=== PATIENT | female | born 2000 | race Caucasian/White ===

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

== ENCOUNTER 2021-08-19 08:09 | Emergency (ER) | payer BC ==
[~2021-08-19] VITALS: Ht 157.5 cm; Wt 49.5 kg
[2021-08-19] MEDS ORDERED: INDERAL 20MG20 MG PO (09:38)
[2021-08-19] MEDS ORDERED: FLORINEF ACETA0.1 MG PO (09:38)
[2021-08-19] MEDS ORDERED: AMBIEN 5MG TABLE5 MG PO (09:39)
[2021-08-19] MEDS ORDERED: PROZAC 20MG20 MG PO (09:39)
[2021-08-19] MEDS ORDERED: ZOFRAN ODT8 MG PO (09:39)
[2021-08-19] MEDS ORDERED: MILI 0.25-0.031 EACH PO (09:39)
[2021-08-19] MEDS ORDERED: RITALIN 5MG5 MG/TAB PO (09:40)
[2021-08-19 09:49] LABS: MONOSCREEN NEGATIVE
[2021-08-19 10:03] LABS: STREP SCREEN NEGATIVE
[2021-08-19 10:30] VITALS: TEMP 99.6
[2021-08-19 11:12] LABS: COLLECTION METHOD CLEAN CATCH
[2021-08-19] MEDS ORDERED: ZOFRAN ODT4 MG PO (11:17)
[2021-08-19 11:22] LABS: BASO % 0.3 % (0.0-2.0); EOS % 0.3 % (0.0-4.0); GRAN # 11.7 K/mm3 (1.4-6.5); GRAN % 85.9 % (42.2-75.2); HEMOGLOBIN 11.1 g/dl (12.5-16.0); LYMPH # 0.8 K/mm3 (1.2-3.4); LYMPH % 5.8 % (20.0-51.0); MEAN CELL VOLUME 91 fl (80.0-100.0); MEAN CORPUSCULAR HEMOGLOBIN 30 pg (27-31); MEAN CORPUSCULAR HGB CONC 33 g/dl (33.0-37.0); MEAN PLATELET VOLUME 10.8 fl (7.4-10.4); MONO % 7.3 % (1.7-9.3); PLATELET COUNT 197 K/mm3 (130-400); RED BLOOD COUNT 3.71 M/mm3 (4.10-5.30); REDCELL DISTRIBUTION WIDTH-CV 11.9 % (11.5-14.5)
[2021-08-19 11:32] LABS: MUCOUS Present (NOT PRESENT); PH 6 (5-8); SQUAMOUS EPITHELIAL 0-2 /hpf (0-10); URINE APPEARANCE Clear (CLEAR/HAZY); URINE BACTERIA Rare /hpf (NONE SEEN); URINE BILIRUBIN Negative (NEGATIVE); URINE BLOOD Negative (NEGATIVE); URINE COLOR Yellow (YELLOW); URINE GLUCOSE Negative (NEGATIVE); URINE KETONE 1+ (NEGATIVE); URINE LEUKOCYTE ESTERASE Negative (NEGATIVE); URINE NITRATE Negative (NEGATIVE); URINE PROTEIN(semi-quant) Negative (NEGATIVE)
[2021-08-19 11:33] LABS: ALBUMIN 3.2 gm/dL (3.5-5.0); BILIRUBIN,TOTAL 0.3 mg/dL (0.2-1.2); CALCIUM 8.4 mg/dL (8.4-10.2); CREATININE, serum 0.65 mg/dL (0.57-1.11); POTASSIUM 3.7 mmol/L (3.5-4.5); TOTAL PROTEIN 6.1 gm/dL (6.2-8.1)
[2021-08-19 11:36] LABS: HEMATOCRIT 33.6 % (37.0-47.0)
[2021-08-19 12:42] VITALS: BP 115/72; PULSE 109
== END 2021-08-19 12:44 | disposition home or self-care (01) ==
LOC: COL.ER 08:09
PROVIDERS: Emergency Medicine
DX: R50.9 Fever, unspecified (principal); R00.0 Tachycardia, unspecified; Z20.822 Contact with and (suspected) exposure to COVID-19
CPT/HCPCS: J0780; J1200; J1885; J2405; J7120

== ENCOUNTER → 2021-08-24 | Emergency (ER) | payer BC ==
[~2021-08-24] MED LIST changes: +AMBIEN 5MG TABLE5 MG PO; +FLORINEF ACETA0.1 MG PO; +INDERAL 20MG20 MG PO; +MILI 0.25-0.031 EACH PO; +PROZAC 20MG20 MG PO; +RITALIN 5MG5 MG/TAB PO; +ZOFRAN ODT4 MG PO; +ZOFRAN ODT8 MG PO
== END ==
LOC: COL.ER 04:58
DX: Z72.89 Other problems related to lifestyle (principal)

== ENCOUNTER 2021-09-29 00:25 | Emergency (ER) | payer BC ==
[~2021-09-29] VITALS: Ht 152.4 cm; Wt 56.8 kg
[2021-09-29 00:30] VITALS: TEMP 98.1
[2021-09-29 01:29] VITALS: BP 140/101; PULSE 95
== END 2021-09-29 01:31 | disposition home or self-care (01) ==
LOC: COL.ER 00:25
DX: J95.830 Postprocedural hemorrhage of a respiratory system organ or structure following a respiratory system procedure (principal)

== ENCOUNTER 2021-10-02 03:00 | Emergency (ER) | payer BC ==
[~2021-10-02] VITALS: Ht 157.5 cm; Wt 52.3 kg
[2021-10-02 03:03] VITALS: TEMP 98.4
[2021-10-02 03:20] LABS: BASO % 0.6 % (0.0-2.0); EOS # 0.1 K/mm3 (0.0-0.7); EOS % 1.7 % (0.0-4.0); GRAN # 4.3 K/mm3 (1.4-6.5); GRAN % 61.2 % (42.2-75.2); HEMOGLOBIN 11.7 g/dl (12.5-16.0); LYMPH # 1.9 K/mm3 (1.2-3.4); LYMPH % 27.4 % (20.0-51.0); MEAN CELL VOLUME 89 fl (80.0-100.0); MEAN CORPUSCULAR HEMOGLOBIN 30 pg (27-31); MEAN CORPUSCULAR HGB CONC 33 g/dl (33.0-37.0); MEAN PLATELET VOLUME 9.5 fl (7.4-10.4); MONO # 0.6 K/mm3 (0.1-0.6); MONO % 8.8 % (1.7-9.3); PLATELET COUNT 298 K/mm3 (130-400); RED BLOOD COUNT 3.95 M/mm3 (4.10-5.30); REDCELL DISTRIBUTION WIDTH-CV 11.5 % (11.5-14.5)
[2021-10-02 03:22] LABS: HEMATOCRIT 35.1 % (37.0-47.0)
[2021-10-02 03:38] LABS: ALBUMIN 3.7 gm/dL (3.5-5.0); BILIRUBIN,TOTAL 0.3 mg/dL (0.2-1.2); C-REACTIVE PROTEIN 2.17 mg/dL (0.00-0.50); CREATININE, serum 0.74 mg/dL (0.57-1.11); POTASSIUM 3.5 mmol/L (3.5-4.5); TOTAL PROTEIN 7.4 gm/dL (6.2-8.1)
[2021-10-02] MEDS ORDERED: PHENERGAN 25 TA25 MG PO (04:57)
[2021-10-02 05:07] VITALS: BP 122/72; PULSE 84
== END 2021-10-02 05:08 | disposition home or self-care (01) ==
LOC: COL.ER 03:00
PROVIDERS: Emergency Medicine
DX: R11.2 Nausea with vomiting, unspecified (principal); Z90.89 Acquired absence of other organs
CPT/HCPCS: J1100; J2550; J7030

== ENCOUNTER → 2021-10-28 | Outpatient (CLI) | payer BC ==
[~2021-10-28] MED LIST changes: +PHENERGAN 25 TA25 MG PO
== END ==
LOC: COL.RAD 09-25 07:30
DX: G93.3 Postviral and related fatigue syndromes (principal); R20.2 Paresthesia of skin
CPT/HCPCS: A9575

== ENCOUNTER → 2022-05-12 | Outpatient (CLI) | payer BC | LOC: COL.RAD 13:46 | DX: E04.1 Nontoxic single thyroid nodule (principal) ==

== ENCOUNTER 2022-05-16 06:23 | Day surgery (SDC) | payer BC ==
[~2022-05-16] VITALS: Ht 157.5 cm; Wt 52.1 kg
[2022-05-16] MEDS ORDERED: ORILISSA150 MG PO (07:04)
[2022-05-16] MEDS ORDERED: TOPAMAX 25MG25 M1 PO (07:05)
[2022-05-16] MEDS ORDERED: BENADRYL50 MG PO (07:05)
[2022-05-16] MEDS ORDERED: MELATONIN5 M1 SL (07:06)
[2022-05-16] MEDS ORDERED: MAGNESIUM OXID500 MG PO (07:06)
[2022-05-16 07:50] VITALS: BP 131/58; PULSE 74; TEMP 97.1
[2022-05-16 08:05] VITALS: BP 109/92; PULSE 84
[2022-05-16 08:15] VITALS: BP 103/71; PULSE 76
--- NOTE | 2022-05-16 08:20 | NUR ---
0750 RETURNS TO ROOM 3 PER CART. AWAKE, ALERT. AMBULATES TO RECLINER WITH STANDBY ASSIST. RESP UNLABORED. DENIES NAUSEA, ABD PAIN OR DYSPHAGIA. CALL LIGHT AT SIDE. FRIEND IN ROOM 0805 TOLERATES PO JUICE AND MUFFIN WITHOUT NAUSEA. SWALLOWS WITHOUT DIFFICULTY. 0806 DISCHARGE INSTRUCTIONS REVIEWED. PATIENT VERBALIZES UNDERSTANDING. COPY PROVIDED IN DISCHARGE FOLDER. [address] JARVIS HERE TO VISIT WITH PATIENT.
[2022-05-16 12:52] VITALS: BP 116/69; PULSE 80; TEMP 97.7
== END 2022-05-16 08:20 | disposition home or self-care (01) ==
LOC: SDCO 06:23
DX: T18.2XXA Foreign body in stomach, initial encounter (principal); K21.9 Gastro-esophageal reflux disease without esophagitis; F41.9 Anxiety disorder, unspecified; X58.XXXA Exposure to other specified factors, initial encounter
CPT/HCPCS: J2704

== ENCOUNTER 2023-06-20 19:36 | Emergency (ER) | payer BC ==
[~2023-06-20] VITALS: Ht 157.5 cm; Wt 50.9 kg
[~2023-06-20 19:36] MED LIST changes: +BENADRYL50 MG PO; +MAGNESIUM OXID500 MG PO; +MELATONIN5 M1 SL; +ORILISSA150 MG PO; +TOPAMAX 25MG25 M1 PO
[2023-06-20 20:01] VITALS: TEMP 98
[2023-06-20 20:44] LABS: COLLECTION METHOD CLEAN CATCH
[2023-06-20 20:47] LABS: BASO # 0.1 K/mm3 (0.0-0.2); BASO % 0.7 % (0.0-2.0); EOS # 0.2 K/mm3 (0.0-0.7); EOS % 2.1 % (0.0-4.0); GRAN # 4.9 K/mm3 (1.4-6.5); HEMATOCRIT 39.1 % (37.0-47.0); HEMOGLOBIN 13.1 g/dl (12.5-16.0); LYMPH # 2.9 K/mm3 (1.2-3.4); LYMPH % 32.3 % (20.0-51.0); MEAN CELL VOLUME 88 fl (80.0-100.0); MEAN CORPUSCULAR HEMOGLOBIN 29 pg (27-31); MEAN CORPUSCULAR HGB CONC 34 g/dl (33.0-37.0); MEAN PLATELET VOLUME 9.5 fl (7.4-10.4); MONO # 0.9 K/mm3 (0.1-0.6); MONO % 9.5 % (1.7-9.3); PLATELET COUNT 327 K/mm3 (130-400); RED BLOOD COUNT 4.46 M/mm3 (4.10-5.30); REDCELL DISTRIBUTION WIDTH-CV 13.1 % (11.5-14.5)
[2023-06-20 20:53] LABS: PH 8.5 (5.0-8.5); URINE APPEARANCE TURBID (CLEAR/HAZY); URINE BLOOD NEGATIVE (NEGATIVE); URINE COLOR YELLOW (YELLOW); URINE GLUCOSE NEGATIVE (NEGATIVE); URINE KETONE NEGATIVE (NEGATIVE); URINE NITRATE NEGATIVE (NEGATIVE); URINE PROTEIN(semi-quant) NEGATIVE (NEGATIVE); URINE UROBILINOGEN 0.2 E.U/dL (0.2-1.0)
[2023-06-20 21:03] LABS: ALBUMIN 3.9 g/dL (3.5-5.0); BILIRUBIN,TOTAL 0.2 mg/dL (0.2-1.2); CALCIUM 9.3 mg/dL (8.4-10.2); CREATININE, serum 0.77 mg/dL (0.57-1.11); MAGNESIUM 2.1 mg/dL (1.6-2.6); POTASSIUM 3.6 mEq/L (3.5-4.5); TOTAL PROTEIN 7.8 g/dl (6.2-8.1)
[2023-06-20] MEDS ORDERED: CEPHALEXIN500 M1 PO (21:33)
[2023-06-20] MEDS ORDERED: LORazepam 2 MG/ML 1 ML VIAL IV ONE (21:45)
[2023-06-20 22:20] VITALS: BP 108/56; PULSE 76
== END 2023-06-20 22:20 | disposition home or self-care (01) ==
LOC: COL.ER 19:36
PROVIDERS: Emergency Medicine
DX: G93.32 Myalgic encephalomyelitis/chronic fatigue syndrome (principal); N39.0 Urinary tract infection, site not specified
CPT/HCPCS: J1720; J2060

== ENCOUNTER 2023-07-08 22:42 | Emergency (ER) | payer BC ==
[~2023-07-08] VITALS: Ht 157.5 cm; Wt 50.9 kg
[~2023-07-08 22:42] MED LIST changes: +CEPHALEXIN500 M1 PO
[2023-07-08 22:52] VITALS: TEMP 99.2
[2023-07-08] MEDS ORDERED: NS 1,000 ML IV ONE (23:15)
[2023-07-08 23:19] LABS: COLLECTION METHOD CLEAN CATCH
[2023-07-08 23:27] LABS: PH 7.5 (5.0-8.5); URINE APPEARANCE CLEAR (CLEAR/HAZY); URINE BLOOD 2+ (NEGATIVE); URINE COLOR YELLOW (YELLOW); URINE GLUCOSE NEGATIVE (NEGATIVE); URINE KETONE NEGATIVE (NEGATIVE); URINE NITRATE NEGATIVE (NEGATIVE); URINE PROTEIN(semi-quant) NEGATIVE (NEGATIVE); URINE UROBILINOGEN 0.2 E.U/dL (0.2-1.0)
[2023-07-08] MEDS ORDERED: LORazepam 2 MG/ML 1 ML VIAL IV ONE (23:30)
[2023-07-08 23:43] LABS: BASO # 0.1 K/mm3 (0.0-0.2); EOS # 0.1 K/mm3 (0.0-0.7); EOS % 1.8 % (0.0-4.0); GRAN # 3.5 K/mm3 (1.4-6.5); GRAN % 48.1 % (42.2-75.2); HEMOGLOBIN 11.9 g/dl (12.5-16.0); LYMPH # 2.9 K/mm3 (1.2-3.4); LYMPH % 39.4 % (20.0-51.0); MEAN CELL VOLUME 89 fl (80.0-100.0); MEAN CORPUSCULAR HEMOGLOBIN 30 pg (27-31); MEAN CORPUSCULAR HGB CONC 34 g/dl (33.0-37.0); MONO # 0.7 K/mm3 (0.1-0.6); MONO % 9.3 % (1.7-9.3); PLATELET COUNT 248 K/mm3 (130-400); RED BLOOD COUNT 3.98 M/mm3 (4.10-5.30); REDCELL DISTRIBUTION WIDTH-CV 12.5 % (11.5-14.5)
[2023-07-08 23:45] LABS: HEMATOCRIT 35.4 % (37.0-47.0)
[2023-07-09] LABS: ALBUMIN 3.4 g/dL (3.5-5.0); CALCIUM 9.1 mg/dL (8.4-10.2); CREATININE, serum 0.85 mg/dL (0.57-1.11); POTASSIUM 3.6 mEq/L (3.5-4.5); TOTAL PROTEIN 6.9 g/dl (6.2-8.1)
[2023-07-09 00:12] LABS: BILIRUBIN,TOTAL 0.1 mg/dL (0.2-1.2)
[2023-07-09] MEDS ORDERED: ATIVAN 1MG T1 MG/TAB PO (01:40)
[2023-07-09 01:55] VITALS: BP 108/71; PULSE 80
[2023-07-10] MEDS ORDERED: RITALIN 20M20 MG/TAB PO (16:18)
[2023-07-10] MEDS ORDERED: FERRO-TIME325 MG PO (16:21)
== END 2023-07-09 01:58 | disposition home or self-care (01) ==
LOC: COL.ER 22:42
PROVIDERS: Nurse Practitioner
DX: R56.9 Unspecified convulsions (principal); Z79.899 Other long term (current) drug therapy
CPT/HCPCS: J2060; J7030

== ENCOUNTER 2023-08-29 11:30 | Emergency (ER) | payer BC ==
[~2023-08-29] VITALS: Ht 157.5 cm; Wt 53.6 kg
[~2023-08-29 11:30] MED LIST changes: +ATIVAN 1MG T1 MG/TAB PO; +FERRO-TIME325 MG PO; +RITALIN 20M20 MG/TAB PO
[2023-08-29 11:32] VITALS: TEMP 98.4
[2023-08-29] MEDS ORDERED: NS 1,000 ML IV ONE (11:45)
[2023-08-29] MEDS ORDERED: levETIRAcetam 500 MG in Syringe 1 EACH IV ONE (11:45)
[2023-08-29] MEDS ORDERED: FLORINEF ACETA0.1 MG PO (12:00)
[2023-08-29] MEDS ORDERED: KEPPRA250 MG PO (12:00)
[2023-08-29] MEDS ORDERED: ORILISSA150 MG (12:00)
[2023-08-29] MEDS ORDERED: PROZAC40 MG PO (12:01)
[2023-08-29] MEDS ORDERED: ABILIFY2 MG PO (12:01)
[2023-08-29 12:02] LABS: BASO # 0.1 K/mm3 (0.0-0.2); BASO % 0.5 % (0.0-2.0); EOS # 0.1 K/mm3 (0.0-0.7); EOS % 0.7 % (0.0-4.0); GRAN # 7.9 K/mm3 (1.4-6.5); GRAN % 76.9 % (42.2-75.2); HEMATOCRIT 38.1 % (37.0-47.0); HEMOGLOBIN 12.1 g/dl (12.5-16.0); LYMPH # 1.6 K/mm3 (1.2-3.4); LYMPH % 15.7 % (20.0-51.0); MEAN CELL VOLUME 89 fl (80.0-100.0); MEAN CORPUSCULAR HEMOGLOBIN 28 pg (27-31); MEAN CORPUSCULAR HGB CONC 32 g/dl (33.0-37.0); MEAN PLATELET VOLUME 9.7 fl (7.4-10.4); MONO # 0.6 K/mm3 (0.1-0.6); MONO % 5.9 % (1.7-9.3); PLATELET COUNT 257 K/mm3 (130-400); RED BLOOD COUNT 4.26 M/mm3 (4.10-5.30); REDCELL DISTRIBUTION WIDTH-CV 12.1 % (11.5-14.5)
[2023-08-29 12:21] LABS: ALBUMIN 3.8 g/dL (3.5-5.0); BILIRUBIN,TOTAL 0.4 mg/dL (0.2-1.2); CALCIUM 9.9 mg/dL (8.4-10.2); CREATININE, serum 0.82 mg/dL (0.57-1.11); MAGNESIUM 1.8 mg/dL (1.6-2.6); POTASSIUM 3.4 mEq/L (3.5-4.5); TOTAL PROTEIN 7.1 g/dl (6.2-8.1)
[2023-08-29 12:41] LABS: PROLACTIN 19.8 ng/mL (5.18-26.53)
[2023-08-29 14:24] VITALS: BP 120/75; PULSE 73
== END 2023-08-29 14:00 | disposition home or self-care (01) ==
LOC: COL.ER 11:30
PROVIDERS: Emergency Medicine
DX: G40.909 Epilepsy, unspecified, not intractable, without status epilepticus (principal); Z79.899 Other long term (current) drug therapy
CPT/HCPCS: J1953; J7030

== ENCOUNTER 2023-10-11 16:50 | Emergency (ER) | payer BC ==
[~2023-10-11] VITALS: Ht 157.5 cm; Wt 54.5 kg
[~2023-10-11 16:50] MED LIST changes: +ABILIFY2 MG PO; +KEPPRA 500MG500 MG PO; +KEPPRA250 MG PO; +ORILISSA150 MG; +PROZAC40 MG PO; +RITALIN LA20 MG PO; +RITALIN10 MG PO; +ZOFRAN8 MG PO; +[UNRECOGNIZED DRUG - OTHER] PO
[2023-10-11 16:53] VITALS: TEMP 98.8
[2023-10-11 17:29] LABS: COLLECTION METHOD CLEAN CATCH
[2023-10-11 17:43] LABS: TRICYCLIC ANTIDEPRESS URINE NEGATIVE (NEGATIVE)
[2023-10-11 17:43] LABS: BASO # 0.1 K/mm3 (0.0-0.2); BASO % 0.6 % (0.0-2.0); EOS # 0.1 K/mm3 (0.0-0.7); EOS % 1.7 % (0.0-4.0); GRAN # 5.2 K/mm3 (1.4-6.5); GRAN % 66.1 % (42.2-75.2); HEMOGLOBIN 11.8 g/dl (12.5-16.0); LYMPH # 1.8 K/mm3 (1.2-3.4); LYMPH % 22.4 % (20.0-51.0); MEAN CELL VOLUME 89 fl (80.0-100.0); MEAN CORPUSCULAR HEMOGLOBIN 29 pg (27-31); MEAN CORPUSCULAR HGB CONC 33 g/dl (33.0-37.0); MEAN PLATELET VOLUME 9.8 fl (7.4-10.4); MONO # 0.7 K/mm3 (0.1-0.6); MONO % 8.8 % (1.7-9.3); PLATELET COUNT 261 K/mm3 (130-400); RED BLOOD COUNT 4.06 M/mm3 (4.10-5.30); REDCELL DISTRIBUTION WIDTH-CV 11.6 % (11.5-14.5)
[2023-10-11 17:55] LABS: HEMATOCRIT 36.1 % (37.0-47.0)
[2023-10-11 17:56] LABS: URINE APPEARANCE Clear (CLEAR/HAZY); URINE COLOR YELLOW (YELLOW)
[2023-10-11 17:57] LABS: URINE BLOOD Negative (NEGATIVE); URINE GLUCOSE Negative (NEGATIVE); URINE KETONE 2+ (NEGATIVE); URINE NITRATE Negative (NEGATIVE); URINE PROTEIN(semi-quant) Negative (NEGATIVE); URINE UROBILINOGEN 0.2 E.U/dL (0.2-1.0)
[2023-10-11 18:04] LABS: BILIRUBIN,TOTAL 0.2 mg/dL (0.2-1.2); CALCIUM 8.8 mg/dL (8.4-10.2); CREATININE, serum 0.68 mg/dL (0.57-1.11); POTASSIUM 3.8 mEq/L (3.5-4.5); TOTAL PROTEIN 7.1 g/dl (6.2-8.1)
[2023-10-11] MEDS ORDERED: NS 50 ML IV SCH (19:32)
[2023-10-11] MEDS ORDERED: Iohexol 300 - 100 ML VIAL IV ONE (19:32)
[2023-10-11] MEDS ORDERED: NS 1,000 ML IV ONE (20:00)
[2023-10-11 21:48] VITALS: BP 133/91; PULSE 73
== END 2023-10-11 21:48 | disposition home or self-care (01) ==
LOC: COL.ER 16:50
PROVIDERS: Physician Assistant
DX: R42 Dizziness and giddiness (principal); R11.2 Nausea with vomiting, unspecified; Z91.040 Latex allergy status
CPT/HCPCS: J7030; Q9967

== ENCOUNTER → 2023-10-14 | Outpatient (CLI) | payer BC | LOC: COL.CARD 07:34 | DX: R41.82 Altered mental status, unspecified (principal); G40.909 Epilepsy, unspecified, not intractable, without status epilepticus ==

== ENCOUNTER 2023-11-07 21:30 | Emergency (ER) | payer BC ==
[~2023-11-07] VITALS: Ht 157.5 cm; Wt 54.5 kg
[~2023-11-07 21:30] MED LIST changes: +CELEBREX 200MG200 MG PO; +ESTARYLLA 35 MC1 TAB PO; +LAMICTAL 25MG T25 MG PO
[2023-11-07 21:31] VITALS: TEMP 98.2
[2023-11-07] MEDS ORDERED: levETIRAcetam 1,000 MG in Syringe 1 EACH IV ONE (22:15)
[2023-11-07 22:23] LABS: COLLECTION METHOD CLEAN CATCH
[2023-11-07 22:26] LABS: BASO # 0.1 K/mm3 (0.0-0.2); BASO % 0.7 % (0.0-2.0); EOS # 0.2 K/mm3 (0.0-0.7); EOS % 1.9 % (0.0-4.0); GRAN # 4.6 K/mm3 (1.4-6.5); GRAN % 55.9 % (42.2-75.2); HEMATOCRIT 38.7 % (37.0-47.0); HEMOGLOBIN 12.8 g/dl (12.5-16.0); LYMPH # 2.6 K/mm3 (1.2-3.4); LYMPH % 31.4 % (20.0-51.0); MEAN CELL VOLUME 88 fl (80.0-100.0); MEAN CORPUSCULAR HEMOGLOBIN 29 pg (27-31); MEAN CORPUSCULAR HGB CONC 33 g/dl (33.0-37.0); MEAN PLATELET VOLUME 10.1 fl (7.4-10.4); MONO # 0.8 K/mm3 (0.1-0.6); MONO % 9.9 % (1.7-9.3); PLATELET COUNT 274 K/mm3 (130-400); RED BLOOD COUNT 4.38 M/mm3 (4.10-5.30)
[2023-11-07 22:30] LABS: URINE APPEARANCE CLEAR (CLEAR/HAZY); URINE BLOOD NEGATIVE (NEGATIVE); URINE COLOR YELLOW (YELLOW); URINE GLUCOSE NEGATIVE (NEGATIVE); URINE KETONE NEGATIVE (NEGATIVE); URINE NITRATE NEGATIVE (NEGATIVE); URINE PROTEIN(semi-quant) NEGATIVE (NEGATIVE); URINE UROBILINOGEN 0.2 E.U/dL (0.2-1.0)
[2023-11-07 22:49] LABS: ALBUMIN 4.1 g/dL (3.5-5.0); BILIRUBIN,TOTAL 0.1 mg/dL (0.2-1.2); CALCIUM 9.6 mg/dL (8.4-10.2); CREATININE, serum 0.72 mg/dL (0.57-1.11); POTASSIUM 3.7 mEq/L (3.5-4.5); TOTAL PROTEIN 7.8 g/dl (6.2-8.1)
[2023-11-07] MEDS ORDERED: Ketorolac 15 MG/ML VIAL IV ONE (23:00)
[2023-11-07] MEDS ORDERED: Morphine 4 MG/ML VIAL IV ONE (23:00)
[2023-11-07 23:31] VITALS: BP 125/97; PULSE 78
[2023-11-07 23:31] LABS: PROLACTIN 8.8 ng/mL (5.18-26.53)
== END 2023-11-07 23:31 | disposition home or self-care (01) ==
LOC: COL.ER 21:30
PROVIDERS: Nurse Practitioner
DX: G40.909 Epilepsy, unspecified, not intractable, without status epilepticus (principal); Z79.899 Other long term (current) drug therapy; Z91.040 Latex allergy status
CPT/HCPCS: J1885; J1953; J2270

== ENCOUNTER 2023-11-08 16:15 | Emergency (ER) | payer BC ==
[~2023-11-08] VITALS: Ht 157.5 cm; Wt 54.5 kg
[2023-11-08] MEDS ORDERED: NS 1,000 ML IV ONE (16:45)
[2023-11-08 17:18] LABS: BASO # 0.1 K/mm3 (0.0-0.2); BASO % 0.6 % (0.0-2.0); EOS # 0.1 K/mm3 (0.0-0.7); EOS % 1.4 % (0.0-4.0); GRAN # 5.3 K/mm3 (1.4-6.5); GRAN % 67.2 % (42.2-75.2); HEMATOCRIT 38.6 % (37.0-47.0); HEMOGLOBIN 12.8 g/dl (12.5-16.0); LYMPH # 1.8 K/mm3 (1.2-3.4); LYMPH % 22.9 % (20.0-51.0); MEAN CELL VOLUME 89 fl (80.0-100.0); MEAN CORPUSCULAR HEMOGLOBIN 29 pg (27-31); MEAN CORPUSCULAR HGB CONC 33 g/dl (33.0-37.0); MEAN PLATELET VOLUME 9.8 fl (7.4-10.4); MONO # 0.6 K/mm3 (0.1-0.6); MONO % 7.6 % (1.7-9.3); PLATELET COUNT 256 K/mm3 (130-400); RED BLOOD COUNT 4.35 M/mm3 (4.10-5.30); REDCELL DISTRIBUTION WIDTH-CV 11.9 % (11.5-14.5)
[2023-11-08 17:39] LABS: COLLECTION METHOD CLEAN CATCH
[2023-11-08] MEDS ORDERED: Morphine 4 MG/ML VIAL IV ONE ×2 (17:45→21:00)
[2023-11-08 17:53] LABS: URINE APPEARANCE CLEAR (CLEAR/HAZY); URINE BLOOD NEGATIVE (NEGATIVE); URINE COLOR YELLOW (YELLOW); URINE GLUCOSE NEGATIVE (NEGATIVE); URINE KETONE NEGATIVE (NEGATIVE); URINE NITRATE NEGATIVE (NEGATIVE); URINE PROTEIN(semi-quant) NEGATIVE (NEGATIVE); URINE UROBILINOGEN 0.2 E.U/dL (0.2-1.0)
[2023-11-08 18:05] LABS: ALANINE AMINOTRANSFERASE 29 U/L (0-55); ALBUMIN 3.9 g/dL (3.5-5.0); ALKALINE PHOSPHATASE 64 U/L (40-150); ANION GAP 11 mmol/L (7-16); AST,SGOT 22 U/L (5-34); BILIRUBIN,TOTAL 0.3 mg/dL (0.2-1.2); BLOOD UREA NITROGEN 12 mg/dL (7-19); CALCIUM 9.2 mg/dL (8.4-10.2); CHLORIDE 103 mEq/L (98-107); CREATININE, serum 0.79 mg/dL (0.57-1.11); GLUCOSE 88 mg/dL (70-99); MAGNESIUM 2.1 mg/dL (1.6-2.6); POTASSIUM 3.9 mEq/L (3.5-4.5); SODIUM 139 mEq/L (136-145); TOTAL PROTEIN 7.2 g/dl (6.2-8.1)
[2023-11-08 18:26] LABS: TROPONIN-I < 0.010 ng/mL (0.00-0.033)
[2023-11-08] MEDS ORDERED: dexAMETHasone 10 MG/ML VIAL IV ONE (19:45)
[2023-11-08] MEDS ORDERED: ACYCLOVIR IV ONE (19:45)
[2023-11-08] MEDS ORDERED: NS IV ONE (19:45)
[2023-11-08] MEDS ORDERED: cefTRIAXone 2 G in Water For Injection,Sterile 20 ML IV ONE (19:45)
[2023-11-08] MEDS ORDERED: Ondansetron 4 MG/2 ML VIAL IV ONE (21:00)
[2023-11-09 02:50] VITALS: BP 128/71; PULSE 88; TEMP 98.2
== END 2023-11-09 02:50 | disposition short-term general hospital (02) ==
LOC: COL.ER 16:15
PROVIDERS: Emergency Medicine
DX: R40.4 Transient alteration of awareness (principal); M54.2 Cervicalgia; M54.9 Dorsalgia, unspecified; G40.909 Epilepsy, unspecified, not intractable, without status epilepticus; Z79.899 Other long term (current) drug therapy; Z91.040 Latex allergy status
CPT/HCPCS: J0133; J0696; J1100; J2270; J2405; J3370; J7030; J7050

== ENCOUNTER 2023-11-23 14:28 | Emergency (ER) | payer BC ==
[~2023-11-23] VITALS: Ht 157.5 cm; Wt 54.5 kg
[2023-11-23 14:29] VITALS: TEMP 98.8
[2023-11-23 15:47] LABS: BASO # 0.1 K/mm3 (0.0-0.2); BASO % 0.7 % (0.0-2.0); EOS # 0.1 K/mm3 (0.0-0.7); EOS % 1.4 % (0.0-4.0); GRAN # 6.4 K/mm3 (1.4-6.5); GRAN % 68.4 % (42.2-75.2); HEMATOCRIT 38.5 % (37.0-47.0); HEMOGLOBIN 12.8 g/dl (12.5-16.0); LYMPH # 2.1 K/mm3 (1.2-3.4); LYMPH % 22.5 % (20.0-51.0); MEAN CELL VOLUME 89 fl (80.0-100.0); MEAN CORPUSCULAR HEMOGLOBIN 30 pg (27-31); MEAN CORPUSCULAR HGB CONC 33 g/dl (33.0-37.0); MEAN PLATELET VOLUME 10.2 fl (7.4-10.4); MONO # 0.6 K/mm3 (0.1-0.6); MONO % 6.8 % (1.7-9.3); PLATELET COUNT 316 K/mm3 (130-400); RED BLOOD COUNT 4.33 M/mm3 (4.10-5.30); REDCELL DISTRIBUTION WIDTH-CV 12.1 % (11.5-14.5)
[2023-11-23 16:08] LABS: ALBUMIN 4.1 g/dL (3.5-5.0); BILIRUBIN,TOTAL 0.3 mg/dL (0.2-1.2); CALCIUM 9.4 mg/dL (8.4-10.2); CREATININE, serum 0.75 mg/dL (0.57-1.11); MAGNESIUM 2.1 mg/dL (1.6-2.6); POTASSIUM 4.3 mEq/L (3.5-4.5); TOTAL PROTEIN 7.8 g/dl (6.2-8.1)
[2023-11-23 16:51] LABS: TSH w REFLEX 0.638 uIU/mL (0.350-4.940)
[2023-11-23 18:01] VITALS: BP 126/98; PULSE 95
== END 2023-11-23 18:01 | disposition home or self-care (01) ==
LOC: COL.ER 14:28
PROVIDERS: Emergency Medicine
DX: R06.02 Shortness of breath (principal); Z91.040 Latex allergy status